=== PATIENT | female | born 1985 | race Caucasian/White ===

== ENCOUNTER 2020-08-07 08:00 | Inpatient (IN) | payer OTHER ==
[2020-07-31 15:57] LABS: BASOPHILS % (AUTO) 0.1 % (0-1); EOSINOPHILS % (AUTO) 0.4 % (0-6); LYMPHOCYTES # (AUTO) 1.2 X10'3 (1.1-4.8); LYMPHOCYTES % (AUTO) 15.7 % (21-51); MEAN CORPUSCULAR HEMOGLOBIN 31.5 PG (27.0-31.0); MEAN CORPUSCULAR HGB CONC 33.6 g/dL (33.0-36.5); MEAN CORPUSCULAR VOLUME 93.6 FL (78-98); MEAN PLATELET VOLUME 7.4 FL (7.4-10.4); MONOCYTES # (AUTO) 0.3 X10'3 (0-0.9); NEUTROPHILS % (AUTO) 79.8 % (42-75); PRE OP HEMATOCRIT 43.2 % (35.0-45.0); PRE OP HEMOGLOBIN 14.5 g/dL (12.0-16.0); PRE OP PLATELET COUNT 230 X10'3 (140-440); RED BLOOD COUNT 4.61 X10'6 (4.20-5.60); RED CELL DISTRIBUTION WIDTH 14.1 % (11.5-14.5)
[2020-07-31 16:18] LABS: ALBUMIN 4.1 G/DL (3.4-5.0); ALBUMIN/GLOBULIN RATIO 1.2 (1.1-1.5); ALKALINE PHOSPHATASE 51 IU/L (46-116); BLOOD UREA NITROGEN 11 MG/DL (7-18); BUN/CREATININE RATIO 11.1 (6.6-38.0); CALCIUM 9.2 MG/DL (8.5-10.1); CHLORIDE 108 MMOL/L (99-107); CREATININE 0.99 MG/DL (0.40-0.90); PRE OP ALT 34 U/L (30-65); PRE OP ANION GAP 9 (8-16); PRE OP AST 22 U/L (10-37); PRE OP BILIRUB, TOTAL 0.4 MG/DL (0.0-1.0); PRE OP GLUCOSE 93 MG/DL (70-104); PRE OP SODIUM 146 MMOL/L (135-145); TOTAL CARBON DIOXIDE 29.4 MMOL/L (24-32); TOTAL PROTEIN 7.4 G/DL (6.4-8.2); eGFR 64 ML/MIN
[2020-07-31 16:19] LABS: HCG SERUM QL NEGATIVE
[~2020-08-07] VITALS: Ht 172.7 cm; Wt 86.5 kg
[2020-08-07] VITALS (20 sets, daily range): BP systolic 102–124; BP diastolic 62–83
[~2020-08-07 08:00] MED LIST: FERR236T3 PO; MAGN400C PO; TAMO20TA4 PO; ceFOXitin 2GM-NS 100mL ADDvant 100 ML IV ONE; famotidine 20mg tablet PO ONE
[2020-08-07] MEDS ORDERED: LIDOcaine 1% (10mg/ml) 2ml vial ONE (08:57)
[2020-08-07] MEDS: ringers solution, lacted 1,000 ML IV SCH ×4 (09:04→21:30)
[2020-08-07] MEDS ORDERED: ceFAZolin 1000mg inj ONE (09:15)
[2020-08-07] MEDS ORDERED: LIDOcaine 1% W/epiNEPHrine 1:100,000 20ml vial ONE (09:15)
[2020-08-07] MEDS ORDERED: clindamycin phosphate 40gm vag cream ONE (09:15)
[2020-08-07] MEDS ORDERED: BUPIVAcaine 0.5% inj/PF 30 ML ONE (09:15)
[2020-08-07 10:25] LABS: PREOP HCG, QL SERUM NEGATIVE (NEGATIVE)
[2020-08-07] MEDS ORDERED: acetaminophen 1000 MG/100ml vial IV ONE (10:25)
[2020-08-07] MEDS ORDERED: sevoflurane 250ml liquid IH ONE (10:25)
[2020-08-07] MEDS ORDERED: midazolam 2 mg/2 ml injection ONE (10:27)
[2020-08-07] MEDS ORDERED: LIDOcaine 2% 5ml jelly ONE (10:50)
[2020-08-07] MEDS ORDERED: fentaNYL /PF 50mcg/ml 5ml ampule ONE (10:50)
[2020-08-07] MEDS ORDERED: LIDOcaine 2% (20mg/ml) 5ml vial ONE (11:02)
[2020-08-07] MEDS ORDERED: rocuronium 10mg/ml inj IV ONE (11:02)
[2020-08-07] MEDS ORDERED: propofol inj 20 ML IV ONE ×2 (11:02→13:27)
[2020-08-07] MEDS ORDERED: proCHLORperazine 10 MG/2 ml inj IV PRN (11:25)
[2020-08-07] MEDS ORDERED: morphine 4 MG/ML inj SYRINge IV PRN (11:25)
[2020-08-07] MEDS ORDERED: ondansetron/PF 4mg/2ml inj IV PRN ×2 (11:25→13:30)
[2020-08-07] MEDS ORDERED: ringers solution, lacted 1,000 ML IV SCH (11:25)
[2020-08-07] MEDS ORDERED: morphine 2 MG/ML inj. syringe IV PRN (11:25)
[2020-08-07] MEDS ORDERED: meperidine/PF 25mg/ml syringe IV PRN ×2 (11:25)
[2020-08-07] MEDS ORDERED: labetalol 20mg/4ml (5mg/ml) syringe IV PRN (11:25)
[2020-08-07] MEDS ORDERED: hydrALAZINE 20mg/ml inj. IV PRN (11:25)
[2020-08-07] MEDS ORDERED: ondansetron/PF 4mg/2ml inj ONE (11:33)
[2020-08-07] MEDS ORDERED: dexamethasone sod phosphate 4mg/ml inj. ONE (11:33)
[2020-08-07] MEDS ORDERED: ePHEDrine 50MG/ML INJ. ONE (12:00)
[2020-08-07] MEDS ORDERED: 0.9 % SODIUM CHLORIDE 10 ML VIAL ONE (12:00)
[2020-08-07] MEDS ORDERED: BUPIVAcaine 0.5% inj/PF 30 ml vial IJ ONE (12:48)
[2020-08-07] MEDS ORDERED: fluoroscein sod 10% (100mg/ml) 5ml vial ONE (13:14)
[2020-08-07] MEDS ORDERED: glycopyrrolate 0.2mg/ml inj ONE (13:14)
[2020-08-07] MEDS ORDERED: neostigmine methylsulfate 1 MG/ML 10ml vial ONE (13:14)
[2020-08-07] MEDS ORDERED: morphine 4 MG/ML inj SYRINge ONE (13:27)
[2020-08-07] MEDS ORDERED: LORazepam 2 mg/ml vial IV PRN (13:30)
[2020-08-07] MEDS ORDERED: naloxone 0.4 mg/ml inj IV PRN (13:30)
[2020-08-07] MEDS ORDERED: normal saline 500ML IV soln IV PRN (13:30)
[2020-08-07] MEDS ORDERED: temazepam 15mg capsule PO PRN (13:30)
[2020-08-07] MEDS ORDERED: oxyCODONE/APAP 5-325mg tablet PO PRN (13:30)
[2020-08-07] MEDS ORDERED: mag hydrox/Alum hydrox/simeth 30ml oral suspension PO PRN (13:30)
[2020-08-07] MEDS ORDERED: CADD PCA waste documentation MC PRN (13:30)
--- NOTE | 2020-08-07 13:32 | NUR ---
Received from OR via , accompanied by Anesthesiologist DR CAMARENA and report given by Anesthesiolgist. AWAKENS TO VOICE. VITALS STABLE. DRESSINGS DI. STATES BURNNING PAIN TO INCISION SITE. ABD SOFT.
[2020-08-07] MEDS: meperidine/PF 25mg/ml syringe IV PRN ×4 (13:39→14:09)
[2020-08-07] MEDS: ketorolac trometh. 30mg/ml inj. IV PRN (13:57)
[2020-08-07] MEDS: HYDROmorphone/NS 1 mg/ml CADD 50 ML IV SCH ×6 (14:15→23:00)
--- NOTE | 2020-08-07 15:12 | NUR ---
Report called to receiving nurse. Transferred via BED Belongings . Special Issues communicated to receiving nurse. AWAKE AND ORIENTED. VITALS STABLE. DRESSINGS DI. STATES PAIN IS IMPROVING. TO SURGICAL [facility]B AT THIS TIME.
--- NOTE | 2020-08-07 16:00 | NUR ---
2 RN Skin Check performed by myself and Erma Hickman RN. No skin issues noted.
--- NOTE | 2020-08-07 18:15 | NUR ---
Patient report given, questions answered & plan of care reviewed with PRINCESS Zapata.
--- NOTE | 2020-08-07 18:30 | NUR ---
Patient in room [facility]. I have received report from DERRICK SÁNCHEZ and had the opportunity to ask questions and assume patient care.
[2020-08-07] MEDS: simethicone 80mg chew tab PO SCH (19:02)
[2020-08-07] MEDS: diphenhydrAMINE 50 mg/ml inj IV PRN (19:02)
[2020-08-07] MEDS: docusate sod 100mg capsule PO SCH (20:54)
[2020-08-07] MEDS: tamoxifen 10mg tablet PO SCH (23:37)
[2020-08-08] VITALS: BP 100/51
[2020-08-08] MEDS: HYDROmorphone/NS 1 mg/ml CADD 50 ML IV SCH ×4 (01:00→07:00)
[2020-08-08] MEDS: ringers solution, lacted 1,000 ML IV SCH ×2 (01:09→10:50)
[2020-08-08] MEDS: diphenhydrAMINE 50 mg/ml inj IV PRN ×2 (01:12→08:50)
[2020-08-08 04:00] VITALS: BP 101/65
[2020-08-08 06:09] LABS: BASOPHILS % (AUTO) 0.1 % (0-1); EOSINOPHILS % (AUTO) 0 % (0-6); HEMATOCRIT 32.9 % (35.0-45.0); HEMOGLOBIN 11.1 g/dl (12.0-16.0); LYMPHOCYTES # (AUTO) 1.1 X10'3 (1.1-4.8); LYMPHOCYTES % (AUTO) 9.6 % (21-51); MEAN CORPUSCULAR HEMOGLOBIN 31.5 PG (27.0-31.0); MEAN CORPUSCULAR HGB CONC 33.7 g/dL (33.0-36.5); MEAN CORPUSCULAR VOLUME 93.5 FL (78-98); MEAN PLATELET VOLUME 7.7 FL (7.4-10.4); MONOCYTES # (AUTO) 0.7 X10'3 (0-0.9); MONOCYTES % (AUTO) 6.5 % (2-12); NEUTROPHILS # (AUTO) 9.6 X10'3 (1.8-7.7); NEUTROPHILS % (AUTO) 83.8 % (42-75); PLATELET COUNT 172 X10'3 (140-440); RED BLOOD COUNT 3.52 X10'6 (4.20-5.60); RED CELL DISTRIBUTION WIDTH 13.6 % (11.5-14.5); WHITE BLOOD COUNT 11.4 X10'3 (4.5-11.0)
[2020-08-08 06:19] LABS: ANION GAP 6 (8-16); BLOOD UREA NITROGEN 9 MG/DL (7-18); BUN/CREATININE RATIO 9.3 (6.6-38.0); CHLORIDE 105 MMOL/L (99-107); CREATININE 0.97 MG/DL (0.40-0.90); GLUCOSE 111 MG/DL (70-104); POTASSIUM 4.2 MMOL/L (3.5-5.1); SODIUM 138 MMOL/L (135-145); TOTAL CARBON DIOXIDE 27.1 MMOL/L (24-32); eGFR 66 ML/MIN
--- NOTE | 2020-08-08 06:33 | NUR ---
Problems reprioritized. Patient report given, questions answered & plan of care reviewed with GARRY SÁNCHEZ.
[2020-08-08 07:00] VITALS: BP 99/61
[2020-08-08] MEDS: docusate sod 100mg capsule PO SCH ×2 (07:22→19:12)
[2020-08-08] MEDS: simethicone 80mg chew tab PO SCH ×3 (07:22→17:27)
[2020-08-08 11:44] VITALS: BP 105/73
[2020-08-08] MEDS: ketorolac trometh. 30mg/ml inj. IV PRN (16:18)
--- NOTE | 2020-08-08 18:20 | NUR ---
Problems reprioritized. Patient report given, questions answered & plan of care reviewed with PRINCESS Zapata.
--- NOTE | 2020-08-08 18:30 | NUR ---
Patient in room [facility]. I have received report from GARRY SÁNCHEZ and had the opportunity to ask questions and assume patient care.
[2020-08-08 20:00] VITALS: BP 111/71
[2020-08-08] MEDS: tamoxifen 10mg tablet PO SCH (21:22)
[2020-08-08] MEDS: oxyCODONE/APAP 5-325mg tablet PO PRN (22:26)
[2020-08-09] VITALS: BP 117/77
--- NOTE | 2020-08-09 06:26 | NUR ---
Problems reprioritized. Patient report given, questions answered & plan of care reviewed with CHAYITO SÁNCHEZ.
--- NOTE | 2020-08-09 06:45 | NUR ---
Patient in room [facility]. I have received report from BAMBI LACY RN and had the opportunity to ask questions and assume patient care.
[2020-08-09 07:51] VITALS: BP 114/78
[2020-08-09] MEDS: oxyCODONE/APAP 5-325mg tablet PO PRN (09:03)
[2020-08-09] MEDS: docusate sod 100mg capsule PO SCH (09:04)
[2020-08-09] MEDS: simethicone 80mg chew tab PO SCH (09:05)
[2020-08-09] MEDS: ketorolac trometh. 30mg/ml inj. IV PRN (10:45)
[2020-08-09 11:56] VITALS: BP 116/74
--- NOTE | 2020-08-09 12:16 | NUR ---
PATIENT STABLE AND APPROPRIATE FOR DISCHARGE, IV TAKEN OUT, EDUCATION GIVEN, ALL BELONGINGS SENT WITH PATIENT, PATIENT TAKEN TO LOBBY IN WHEEL CHAIR TO AN AWAITING CAR WHERE FAMILY MEMBER WILL TAKE PATIENT HOME
== END 2020-08-09 12:15 | disposition home or self-care (01) | DRG 743 ==
LOC: PAS 08:00 → SUR 3N 13:30
PROVIDERS: ADMIT Obstetrics & Gynecology; ATTEND Obstetrics & Gynecology
PROC: 0UBMXZZ Excision of Vulva, External Approach (ICD-10-PCS; 2020-08-07)
PROC: 0USGXZZ Reposition Vagina, External Approach (ICD-10-PCS; 2020-08-07)
PROC: 0UT90ZZ Resection of Uterus, Open Approach (ICD-10-PCS; principal; 2020-08-07 10:25)
DX: N92.0 Excessive and frequent menstruation with regular cycle (principal); N85.2 Hypertrophy of uterus; N90.89 Other specified noninflammatory disorders of vulva and perineum
CPT/HCPCS: Z7506; Z7508; 36415; 76937; 80048; 80053; 82948; 84703; 85025; 86885; 86900; 86901; 87081; A4355; A4618; A6250; A7000; C1758; G0378; J0131; J0690; J0694; J1100; J1170; J1200; J1885; J2001; J2175; J2250; J2270; J2405; J2704; J2710; J3010; J3490; J7120